=== PATIENT | female | born 1995 | race Caucasian/White ===

== ENCOUNTER 2018-09-25 13:13 | Observation (INO) | payer BC ==
--- NOTE | 2018-09-25 13:29 | EDM.PDOCBH ---
ED HPI GENERAL MEDICAL PROBLEM - General Chief Complaint: Behavioral/Psych Stated Complaint: ER VISIT Time Seen by Provider: 09/25/18 13:16 Source of Information: Reports: Patient, RN, RN Notes Reviewed History Limitations: Reports: No Limitations - History of Present Illness INITIAL COMMENTS - FREE TEXT/NARRATIVE: Patient presents to the ED at [facility] for evaluation after she took approximately 6 tablets of Acetaminophen. According to the patient, she was having a "bad day" and was sent home from work. Shortly after arriving home, the patient apparently took the Tylenol. She apparently called a fellow nurse at home who brought her here to the ER for evaluation. Patient states she was having a bad day, headaches, and just not feeling well. Patient states she took the Tylenol to make her symptoms better and not to harm herself. Patient offers no specific complains. Denies pain. No chest pain or SOB. Very mild ache in her stomach. No N/V/D. No urinary symptoms. In reviewing the [facility] record, it appears the patient has a long- standing history of anxiety and depression. The patient recently restarted on Prozac a couple of months ago at 20 mg daily. The patient did have a dose decreased to 40 mg the end of July. It appears that the patient has not been consistently keeping her appointments with her PCP. The patient has been seen at [facility] in the past for anxiety and depression. There was mention that the patient may have bipolar 1, however this is not mentioned in the [facility] records according to [place] review. During the last PCP visit, the patient had stated that she was doing much better on the current dose of Prozac. Onset: Today Onset Date: 09/25/18 Onset Time: 12:30 - Related Data Allergies Allergy/AdvReac Type Severity Reaction Status Date / Time bupropion HCl Allergy Hives Verified 09/25/18 13:27 [From Wellbutrin] Sulfa (Sulfonamide Allergy Hives Verified 09/25/18 13:27 Antibiotics) Home Meds: Home Meds FLUoxetine HCl [Fluoxetine HCl] 40 mg PO DAILY 09/25/18 [History] Past Medical History Other HEENT History: glasses Other Genitourinary History: kidney stone - Past Surgical History Other Female Surgeries/Procedures: natural delivery Social & Family History - Living Situation & Occupation Living situation: Reports: with Significant Other Occupation: Unemployed ED ROS GENERAL - Review of Systems Review Of Systems: See Below Constitutional: Denies: Fever, Chills Respiratory: Denies: Shortness of Breath, Cough Cardiovascular: Denies: Chest Pain, Palpitations GI/Abdominal: Reports: Abdominal Pain. Denies: Diarrhea, Nausea, Vomiting Skin: Reports: No Symptoms Neurological: Reports: No Symptoms ED EXAM, BEHAVIORAL HEALTH - Physical Exam Exam: See Below Exam Limited By: No Limitations General Appearance: Alert, No Apparent Distress Respiratory/Chest: No Respiratory Distress, Lungs Clear, Normal Breath Sounds Cardiovascular: Normal Peripheral Pulses, Regular Rate, Rhythm GI/Abdominal: Normal Bowel Sounds, Soft, Non-Tender Neurological: Alert, Normal Cognition, Oriented x 3 Psychiatric: Depressed Mood, Flat Affect, Poor Eye Contact, Withdrawn. No: Homicidal Thoughts, Suicidal Plan, Suicidal Thoughts, Threatening Behavior Skin Exam: Warm, Dry, Intact, Normal color COURSE, BEHAVIORAL HEALTH COMP - Course Vital Signs: Last Vital Signs Temp 37.0 C 09/25/18 13:16 Pulse 89 09/25/18 13:16 Resp 16 09/25/18 13:16 BP 143/84 H 09/25/18 13:16 Pulse Ox 100 09/25/18 13:16 Orders, Labs, Meds: Active Orders 24 hr Category Date Time Status SALICYLATE [REF] Stat Lab 09/25/18 13:30 Received Laboratory Tests 09/25/18 09/25/18 09/25/18 Range/Units 13:30 13:30 13:42 WBC 7.3 (4.0-10.0) x10^3/uL RBC 4.37 (4.00-5.50) x10^6/uL Hgb 12.4 (12.0-16.0) g/dL Hct 36.7 (33.0-47.0) % MCV 84.0 (78.0-93.0) fL MCH 28.4 (26.0-32.0) pg MCHC 33.8 (32.0-36.0) g/dL RDW Coeff of Mehran 12.4 (10.0-15.0) % Plt Count 354 (130-400) x10^3/uL Neut % (Auto) 73.0 (50.0-80.0) % Lymph % (Auto) 19.2 L (25.0-50.0) % [place] % (Auto) 7.3 (2.0-11.0) % Eos % (Auto) 0.4 (0.0-4.0) % Baso % (Auto) 0.1 L (0.2-1.2) % Sodium 137 (136-145) mmol/L Potassium 3.3 L (3.5-5.1) mmol/L Chloride 98 (98-107) mmol/L Carbon Dioxide 25 (21-32) mmol/L Anion Gap 17.3 (10-20) mmol/L BUN 12 (7-18) mg/dL Creatinine 0.7 (0.55-1.02) mg/dL Est Cr Clr Drug Dosing TNP Estimated GFR (MDRD) > 60 Glucose 109 H (74-106) mg/dL Calcium 9.9 (8.5-10.1) mg/dL Corrected Calcium 9.74 (8.5-10.1) mg/dL Total Bilirubin 0.4 (0.2-1.0) mg/dL AST 17 (15-37) U/L ALT 25 (14-59) U/L Alkaline Phosphatase 96 (46-116) U/L Total Protein 8.5 H (6.4-8.2) g/dL Albumin 4.2 (3.4-5.0) g/dL Globulin 4.3 Albumin/Globulin Ratio 0.98 Urine Color (YELLOW) Urine Appearance (CLEAR) Urine pH (5.0-8.0) Ur Specific [place] Urine Protein (NEGATIVE) mg/dL Urine Glucose (UA) (NEGATIVE) mg/dL Urine Ketones (NEGATIVE) mg/dL Urine Occult Blood (NEGATIVE) Urine Nitrite (NEGATIVE) Urine Bilirubin (NEGATIVE) Urine Urobilinogen (0.2) EU/dL Ur Leukocyte Esterase (NEGATIVE) Urine Opiates Screen Negative (NEGATIVE) Ur Buprenorphine Scrn Negative (NEGATIVE) Ur Oxycodone Screen Negative (NEGATIVE) Urine Methadone Screen Negative (NEGATIVE) Acetaminophen 42 H (10-30) ug/ml Ur Barbiturates Screen Negative (NEGATIVE) Ur Tricyclics Screen Negative (NEGATIVE) Ur Amphetamine Screen Negative (NEGATIVE) U Methamphetamines Scrn Negative (NEGATIVE) Urine MDMA Screen Negative (NEGATIVE) U Benzodiazepines Scrn Negative (NEGATIVE) U Cocaine Metab Screen Negative (NEGATIVE) U Marijuana (THC) Screen Negative (NEGATIVE) Ethyl Alcohol < 3 (0-3) mg/dL 09/25/18 Range/Units 13:42 WBC (4.0-10.0) x10^3/uL RBC (4.00-5.50) x10^6/uL Hgb (12.0-16.0) g/dL Hct (33.0-47.0) % MCV (78.0-93.0) fL MCH (26.0-32.0) pg MCHC (32.0-36.0) g/dL RDW Coeff of Mehran (10.0-15.0) % Plt Count (130-400) x10^3/uL Neut % (Auto) (50.0-80.0) % Lymph % (Auto) (25.0-50.0) % [place] % (Auto) (2.0-11.0) % Eos % (Auto) (0.0-4.0) % Baso % (Auto) (0.2-1.2) % Sodium (136-145) mmol/L Potassium (3.5-5.1) mmol/L Chloride (98-107) mmol/L Carbon Dioxide (21-32) mmol/L Anion Gap (10-20) mmol/L BUN (7-18) mg/dL Creatinine (0.55-1.02) mg/dL Est Cr Clr Drug Dosing Estimated GFR (MDRD) Glucose (74-106) mg/dL Calcium (8.5-10.1) mg/dL Corrected Calcium (8.5-10.1) mg/dL Total Bilirubin (0.2-1.0) mg/dL AST (15-37) U/L ALT (14-59) U/L Alkaline Phosphatase (46-116) U/L Total Protein (6.4-8.2) g/dL Albumin (3.4-5.0) g/dL Globulin Albumin/Globulin Ratio Urine Color Yellow (YELLOW) Urine Appearance Clear (CLEAR) Urine pH 5.5 (5.0-8.0) Ur Specific [place] 1.020 Urine Protein Negative (NEGATIVE) mg/dL Urine Glucose (UA) Negative (NEGATIVE) mg/dL Urine Ketones Negative (NEGATIVE) mg/dL Urine Occult Blood Negative (NEGATIVE) Urine Nitrite Negative (NEGATIVE) Urine Bilirubin Negative (NEGATIVE) Urine Urobilinogen 0.2 (0.2) EU/dL Ur Leukocyte Esterase Negative (NEGATIVE) Urine Opiates Screen (NEGATIVE) Ur Buprenorphine Scrn (NEGATIVE) Ur Oxycodone Screen (NEGATIVE) Urine Methadone Screen (NEGATIVE) Acetaminophen (10-30) ug/ml Ur Barbiturates Screen (NEGATIVE) Ur Tricyclics Screen (NEGATIVE) Ur Amphetamine Screen (NEGATIVE) U Methamphetamines Scrn (NEGATIVE) Urine MDMA Screen (NEGATIVE) U Benzodiazepines Scrn (NEGATIVE) U Cocaine Metab Screen (NEGATIVE) U Marijuana (THC) Screen (NEGATIVE) Ethyl Alcohol (0-3) mg/dL Departure - Departure Time of Disposition: 14:34 Disposition: Refer to Observation Condition: Good Clinical Impression: Acetaminophen overdose of undetermined intent Qualifiers: Encounter type: initial encounter Qualified Code(s): T39.1X4A - Poisoning by 4- Aminophenol derivatives, undetermined, initial encounter - Discharge Information *PRESCRIPTION DRUG MONITORING PROGRAM REVIEWED*: Not Applicable *COPY OF PRESCRIPTION DRUG MONITORING REPORT IN PATIENT AMANDA: Not Applicable ED Communication - ED Communication Date/Time Date: 09/25/18 Time Called: 14:22 - Discussed Case With (1) Discussed Case With (1): Other ([facility], [place]) - Problem List Review Problem List Initiated/Reviewed/Updated: Yes - My Orders Last 24 Hours: My Active Orders 09/25/18 13:30 SALICYLATE [REF] Stat - Assessment/Plan Admission H&P: Please use this note as an admission H&P Last 24 Hours: My Active Orders 09/25/18 13:30 SALICYLATE [REF] Stat Assessment:: Unintentional Tylenol OD Hypokalemia Plan: Case discussed with Poison Control Center. Lab would need to be drawn at 16:30 to get a true value of tylenol, so patient will be admitted observation for labs and IVF hydration. Patient may need Mucomyst, so will see what the level is. Patient agrees with the admission and wishes to proceed. Discussed the patient that if her next draw for acetaminophen is high she would need to be started on Mucomyst. If the labral is trending down she would be discharged once the Tylenol level is undetectable. We will replace the patient's potassium. I will put her on IV fluids for hydration and to help flush her system. We'll start the patient on a PPI IV for now prophylactically. I do anticipate a stay of less than 48 hours. The patient is a code level I.
[2018-09-25 13:58] LABS: ACETAMINOPHEN 42 ug/ml (10-30); CHLORIDE,CL 98 mmol/L (98-107); SODIUM,NA 137 mmol/L (136-145)
[2018-09-25 13:59] LABS: ANION GAP 17.3 mmol/L (10-20)
[2018-09-25] MEDS ORDERED: Ondansetron 4 MG Tab.DIS PO PRN (14:45)
[2018-09-25 15:00] VITALS: BP 126/70
[2018-09-25] MEDS ORDERED: Sodium Chloride 0.9% 1,000 ML IV ONE (15:01)
[2018-09-25] MEDS ORDERED: Sodium Chloride 0.9% 10 ML Syringe FLUSH PRN (15:02)
[2018-09-25] MEDS ORDERED: Potassium Chloride 20 MEQ Tab.ER PO ONE (15:02)
--- NOTE | 2018-09-25 17:24 | PCM.DCSUM1 ---
Discharge Summary - Hospital Course HPI Initial Comments: Patient presented to the emergency room earlier today after she had taken 6 tablets of Tylenol. The patient had stated in the emergency room that the ingestion was unintentional. The patient had stated she had a severe headache and was having a bad day at work and that's why she took the pills. The patient' s laboratory work in the emergency room was normal with the exception of acetaminophen which was elevated at 42. The Poison Control Center was contacted and the recommendation was made to observe the patient and draw an acetaminophen level IV hours after the time of ingestion. If the level was declining the patient would be able to be discharged. The patient does have a long-standing history of anxiety and depression. The patient was recently started on Prozac a couple of months ago by her PCP. According to old records, the Prozac seems to be working well for the patient per her own admission. The patient states today that she was not trying to intentionally overdose on the acetaminophen and that she was only having a bad day. Diagnosis: Stroke: No Modified Ascencion Scale: No Symptoms at All Modified [place] Scale Score: 0 - Discharge Data Discharge Date: 09/25/18 Discharge Disposition: Home, Self-Care 01 Condition: Good - Discharge Diagnosis/Problem(s) (1) Acetaminophen overdose of undetermined intent SNOMED Code(s): 201963859, [id number] ICD Code: T39.1X4A - POISONING BY 4-AMINOPHENOL DERIVATIVES, UNDETERMINED, INIT Status: Acute Current Visit: Yes Onset Date: ~09/25/18 Qualifiers: Encounter type: initial encounter Qualified Code(s): T39.1X4A - Poisoning by 4-Aminophenol derivatives, undetermined, initial encounter - Patient Summary/Data Operative Procedure(s) Performed: None Consults: Consultations 09/25/18 14:45 Consult to Case Management/Pulmonology Technician [CONS] Routine Labs Pending at D/C: None Recommended Follow-up Testing/Procedures: Keep followup appt with Dr. Hawkins on September 30, 2018. Planned Operative Procedure(s) after DC: None Hospital Course: Patient was admitted to our observation unit for IV fluid hydration and monitoring due to Tylenol ingestion. The patient's repeat Tylenol level was 10 which is in the normal range. The patient short stay in observation was uneventful. The patient remained hemodynamically stable. The patient did not have any pain at the time of discharge. No focal neurological deficits. The patient did not have any cardiac rhythm problems. The patient did not have any chest pain or shortness of breath. The patient did have some abdominal ache in the epigastrium but that had resolved at the time of discharge. - Patient Instructions Diet: Regular Diet as Tolerated Activity: Rest and Relax Today Driving: Do Not Drive (for today) Showering/Bathing: May Shower Notify Provider of: Fever, Increased Pain, Nausea and/or Vomiting - Discharge Plan *PRESCRIPTION DRUG MONITORING PROGRAM REVIEWED*: Not Applicable *COPY OF PRESCRIPTION DRUG MONITORING REPORT IN PATIENT AMANDA: Not Applicable Home Medications: Home Meds FLUoxetine HCl [Fluoxetine HCl] 40 mg PO DAILY 09/25/18 [History] Oxygen Therapy Mode: Room Air Referrals: Lorena Hawkins MD [Primary Care Provider] - 09/30/18 (FOLLOW UP WITH DR. HAWKINS ON SEPTEMBER 30, 2018 ) - Discharge Summary/Plan Comment DC Time >30 min.: No Discharge Summary/Plan Comment: Patient will be discharge to home into the responsibility of her . Recommend patient states very well hydrated. Avoid Tylenol products. Follow up with Dr. Hawkins on Sunday, September 30, 2018. This appt is already scheduled. - General Info Date of Service: 09/25/18 Admission Dx/Problem (Free Text: Unintentional Acetaminophen overdose Depression Anxiety Subjective Update: Patient offers no specific complaints. Patient states she did not take the Tylenol intentionally to harm herself. No issues with BM's or urination. Ambulating normal. No focal neurological complaints. Functional Status: Reports: Pain Controlled, Tolerating Diet, Ambulating, Urinating. Denies: New Symptoms Numeric/FACES Score: 0 - Review of Systems General: Denies: Fever, Weakness Pulmonary: Denies: Shortness of Breath, Cough Cardiovascular: Denies: Chest Pain, Palpitations Gastrointestinal: Denies: Abdominal Pain, Nausea, Vomiting Skin: Reports: No Symptoms Neurological: Reports: No Symptoms - Patient Data Vitals - Most Recent: Last Vital Signs Temp 37.1 C 09/25/18 14:45 Pulse 85 09/25/18 14:45 Resp 20 09/25/18 14:45 BP 126/70 09/25/18 14:45 Pulse Ox 100 09/25/18 14:45 Weight - Most Recent: 86.908 kg I&O - Last 24 hours: Intake & Output 09/25/18 09/25/18 09/25/18 06:59 14:59 22:59 Intake Total 250 Output Total 550 Balance -300 Lab Results - Last 24 hrs: Laboratory Results - last 24 hr 09/25/18 09/25/18 09/25/18 Range/Units 13:30 13:30 13:42 WBC 7.3 (4.0-10.0) x10^3/uL RBC 4.37 (4.00-5.50) x10^6/uL Hgb 12.4 (12.0-16.0) g/dL Hct 36.7 (33.0-47.0) % MCV 84.0 (78.0-93.0) fL MCH 28.4 (26.0-32.0) pg MCHC 33.8 (32.0-36.0) g/dL RDW Coeff of Mehran 12.4 (10.0-15.0) % Plt Count 354 (130-400) x10^3/uL Neut % (Auto) 73.0 (50.0-80.0) % Lymph % (Auto) 19.2 L (25.0-50.0) % [place] % (Auto) 7.3 (2.0-11.0) % Eos % (Auto) 0.4 (0.0-4.0) % Baso % (Auto) 0.1 L (0.2-1.2) % Sodium 137 (136-145) mmol/L Potassium 3.3 L (3.5-5.1) mmol/L Chloride 98 (98-107) mmol/L Carbon Dioxide 25 (21-32) mmol/L Anion Gap 17.3 (10-20) mmol/L BUN 12 (7-18) mg/dL Creatinine 0.7 (0.55-1.02) mg/dL Est Cr Clr Drug Dosing TNP Estimated GFR (MDRD) > 60 Glucose 109 H (74-106) mg/dL Calcium 9.9 (8.5-10.1) mg/dL Corrected Calcium 9.74 (8.5-10.1) mg/dL Total Bilirubin 0.4 (0.2-1.0) mg/dL AST 17 (15-37) U/L ALT 25 (14-59) U/L Alkaline Phosphatase 96 (46-116) U/L Total Protein 8.5 H (6.4-8.2) g/dL Albumin 4.2 (3.4-5.0) g/dL Globulin 4.3 Albumin/Globulin Ratio 0.98 Urine Color (YELLOW) Urine Appearance (CLEAR) Urine pH (5.0-8.0) Ur Specific [place] Urine Protein (NEGATIVE) mg/dL Urine Glucose (UA) (NEGATIVE) mg/dL Urine Ketones (NEGATIVE) mg/dL Urine Occult Blood (NEGATIVE) Urine Nitrite (NEGATIVE) Urine Bilirubin (NEGATIVE) Urine Urobilinogen (0.2) EU/dL Ur Leukocyte Esterase (NEGATIVE) Urine Opiates Screen Negative (NEGATIVE) Ur Buprenorphine Scrn Negative (NEGATIVE) Ur Oxycodone Screen Negative (NEGATIVE) Urine Methadone Screen Negative (NEGATIVE) Acetaminophen 42 H (10-30) ug/ml Ur Barbiturates Screen Negative (NEGATIVE) Ur Tricyclics Screen Negative (NEGATIVE) Ur Amphetamine Screen Negative (NEGATIVE) U Methamphetamines Scrn Negative (NEGATIVE) Urine MDMA Screen Negative (NEGATIVE) U Benzodiazepines Scrn Negative (NEGATIVE) U Cocaine Metab Screen Negative (NEGATIVE) U Marijuana (THC) Screen Negative (NEGATIVE) Ethyl Alcohol < 3 (0-3) mg/dL 09/25/18 09/25/18 Range/Units 13:42 16:30 WBC (4.0-10.0) x10^3/uL RBC (4.00-5.50) x10^6/uL Hgb (12.0-16.0) g/dL Hct (33.0-47.0) % MCV (78.0-93.0) fL MCH (26.0-32.0) pg MCHC (32.0-36.0) g/dL RDW Coeff of Mehran (10.0-15.0) % Plt Count (130-400) x10^3/uL Neut % (Auto) (50.0-80.0) % Lymph % (Auto) (25.0-50.0) % [place] % (Auto) (2.0-11.0) % Eos % (Auto) (0.0-4.0) % Baso % (Auto) (0.2-1.2) % Sodium (136-145) mmol/L Potassium (3.5-5.1) mmol/L Chloride (98-107) mmol/L Carbon Dioxide (21-32) mmol/L Anion Gap (10-20) mmol/L BUN (7-18) mg/dL Creatinine (0.55-1.02) mg/dL Est Cr Clr Drug Dosing Estimated GFR (MDRD) Glucose (74-106) mg/dL Calcium (8.5-10.1) mg/dL Corrected Calcium (8.5-10.1) mg/dL Total Bilirubin (0.2-1.0) mg/dL AST (15-37) U/L ALT (14-59) U/L Alkaline Phosphatase (46-116) U/L Total Protein (6.4-8.2) g/dL Albumin (3.4-5.0) g/dL Globulin Albumin/Globulin Ratio Urine Color Yellow (YELLOW) Urine Appearance Clear (CLEAR) Urine pH 5.5 (5.0-8.0) Ur Specific [place] 1.020 Urine Protein Negative (NEGATIVE) mg/dL Urine Glucose (UA) Negative (NEGATIVE) mg/dL Urine Ketones Negative (NEGATIVE) mg/dL Urine Occult Blood Negative (NEGATIVE) Urine Nitrite Negative (NEGATIVE) Urine Bilirubin Negative (NEGATIVE) Urine Urobilinogen 0.2 (0.2) EU/dL Ur Leukocyte Esterase Negative (NEGATIVE) Urine Opiates Screen (NEGATIVE) Ur Buprenorphine Scrn (NEGATIVE) Ur Oxycodone Screen (NEGATIVE) Urine Methadone Screen (NEGATIVE) Acetaminophen 10 (10-30) ug/ml Ur Barbiturates Screen (NEGATIVE) Ur Tricyclics Screen (NEGATIVE) Ur Amphetamine Screen (NEGATIVE) U Methamphetamines Scrn (NEGATIVE) Urine MDMA Screen (NEGATIVE) U Benzodiazepines Scrn (NEGATIVE) U Cocaine Metab Screen (NEGATIVE) U Marijuana (THC) Screen (NEGATIVE) Ethyl Alcohol (0-3) mg/dL Med Orders - Current: Current Medications Fluoxetine HCl (Prozac) 40 mg PO DAILY YULY Ondansetron HCl (Zofran Odt) 4 mg PO Q6H PRN PRN Reason: nausea, able to take PO Sodium Chloride (Saline Flush) 10 ml FLUSH ASDIRECTED PRN PRN Reason: Keep Vein Open Discontinued Medications Sodium Chloride (Normal Saline) 1,000 mls @ 999 mls/hr IV ONETIME ONE Stop: 09/25/18 16:01 Last Admin: 09/25/18 15:20 Dose: 999 mls/hr Potassium Chloride (Klor-Con M20) 40 meq PO ONETIME ONE Stop: 09/25/18 15:03 Last Admin: 09/25/18 15:28 Dose: 40 meq - Exam Quality Assessment: Denies: DVT Prophylaxis, Skin Breakdown General: Reports: Alert, Oriented, Cooperative, No Acute Distress Lungs: Reports: Clear to Auscultation, Normal Respiratory Effort Cardiovascular: Reports: Regular Rate, Regular Rhythm GI/Abdominal Exam: Normal Bowel Sounds, Soft, Non-Tender Skin: Reports: Warm, Dry, Intact Neurological: Reports: No New Focal Deficit
[2018-09-26] MEDS ORDERED: FLUoxetine 20 MG Cap PO SCH (08:00)
== END 2018-09-25 17:50 | disposition home or self-care (01) ==
LOC: VM.ED 13:13 → VM.MS 14:32
PROVIDERS: ADMIT Nurse Practitioner Family; ATTEND Nurse Practitioner Family
DX: T39.1X4A Poisoning by 4-Aminophenol derivatives, undetermined, initial encounter (principal); E87.6 Hypokalemia; F41.9 Anxiety disorder, unspecified; F32.9 Major depressive disorder, single episode, unspecified
CPT/HCPCS: 36415; 80053; 80305-QW; 81003; 85025; 99284; A9270-GY; G0480; J7030

== ENCOUNTER 2023-11-12 | Emergency (ER) | payer OTHER ==
[2023-11-12 00:19] VITALS: BP 132/66; PULSE 66
[2023-11-12 00:39] LABS: APPEARANCE,URINE CLEAR (CLEAR); BILIRUBIN,URINE NEGATIVE (NEGATIVE); COLOR,URINE DARK YELLOW (YELLOW); GLUCOSE,URINE NEGATIVE (NEGATIVE); KETONES,URINE TRACE mg/dL (NEGATIVE); LEUKOCYTE ESTERASE,URINE NEGATIVE (NEGATIVE); NITRITE,URINE NEGATIVE (NEGATIVE); OCCULT BLOOD,URINE NEGATIVE (NEGATIVE); PH,URINE 5.5 (5.0-8.0); PROTEIN,URINE TRACE mg/dL (NEGATIVE); UROBILINOGEN,URINE 0.2 EU/dL (0.2)
[2023-11-12 00:44] LABS: BASOPHILS PERCENT AUTO 0.1 % (0.2-1.2); EOSINOPHILS ABSOLUTE AUTO 0.1 x10^3/uL (0.0-0.5); EOSINOPHILS PERCENT AUTO 0.7 % (0.0-4.0); HEMATOCRIT 36.7 % (33.0-47.0); HEMOGLOBIN 12.6 g/dL (12.0-16.0); IMMATURE GRAN ABSOLUTE AUTO 0.02 x10^3/uL (0.00-0.07); LYMPHOCYTES ABSOLUTE AUTO 1.9 x10^3/uL (1.0-4.8); LYMPHOCYTES PERCENT AUTO 14.9 % (25.0-50.0); MEAN CORPUSCULAR HEMOGLOBIN 30.4 pg (26.0-32.0); MEAN CORPUSCULAR HGB CONC 34.3 g/dL (32.0-36.0); MEAN CORPUSCULAR VOLUME 88.4 fL (78.0-93.0); MONOCYTES ABSOLUTE AUTO 0.7 x10^3/uL (0.0-0.8); MONOCYTES PERCENT AUTO 5.6 % (2.0-11.0); NEUTROPHILS ABSOLUTE AUTO 10.2 x10^3/uL (1.8-7.7); NEUTROPHILS PERCENT AUTO 78.5 % (50.0-80.0); PLATELET COUNT,PLT 291 x10^3/uL (130-400); RED BLOOD CELL COUNT 4.15 x10^6/uL (4.00-5.50)
[2023-11-12 00:44] LABS: BACTERIA,URINE OCCASIONAL /HPF (NOT SEEN); MUCUS,URINE OCCASIONAL /LPF (NOT SEEN); RBC,URINE 0-5 /HPF (NOT SEEN); SQUAMOUS EPITHELIAL CELLS,UR OCCASIONAL /HPF (NOT SEEN); WBC,URINE 0-5 /HPF (NOT SEEN)
[2023-11-12 00:51] LABS: A/G RATIO 0.95; ALANINE AMINOTRANSFERASE,ALT 18 U/L (14-59); ALBUMIN 3.9 g/dL (3.4-5.0); ALKALINE PHOSPHATASE 59 U/L (46-116); ANION GAP 14.8 mmol/L (5-15); ASPARTATE AMNIOTRANSFERASE,AST 14 U/L (15-37); BILIRUBIN TOTAL 0.3 mg/dL (0.2-1.0); BLOOD UREA NITROGEN,BUN 17 mg/dL (7-18); CALCIUM 9.3 mg/dL (8.5-10.1); CARBON DIOXIDE,CO2 28 mmol/L (21-32); CHLORIDE,CL 101 mmol/L (98-107); CREATININE 0.8 mg/dL (0.55-1.02); ESTIMATED GFR 102 mL/min (>=60); ETHANOL BLOOD MEDICAL < 3 mg/dL (0-3); GLUCOSE RANDOM 102 mg/dL (70-99); POTASSIUM,K 3.8 mmol/L (3.5-5.1); SODIUM,NA 140 mmol/L (136-145)
[2023-11-12 01:01] LABS: CORONAVIRUS COVID-19 NAA NEGATIVE (NEGATIVE); INFLUENZA A NAA NEGATIVE (NEGATIVE); INFLUENZA B NAA NEGATIVE (NEGATIVE); RESPIRATORY SYNCYTIAL VIR NAA NEGATIVE (NEGATIVE)
[2023-11-12 01:07] LABS: AMPHETAMINES SCREEN, URINE POSITIVE (NEGATIVE); BARBITURATE SCREEN,URINE NEGATIVE (NEGATIVE); BENZODIAZEPINES SCREEN,URINE NEGATIVE (NEGATIVE); BUPRENORPHINE SCREEN,URINE NEGATIVE (NEGATIVE); COCAINE METABOLITES,URINE NEGATIVE (NEGATIVE); METHADONE SCREEN, URINE NEGATIVE (NEGATIVE); METHAMPHETAMINE SCREEN, URINE NEGATIVE (NEGATIVE); OXYCODONE SCREEN,URINE NEGATIVE (NEGATIVE); PCP SCREEN,URINE NEGATIVE (NEGATIVE); THC SCREEN,URINE 50 NG/ML NEGATIVE (NEGATIVE)
== END 2023-11-12 05:10 ==
LOC: VM.ED
DX: R45.851 Suicidal ideations (principal); F90.9 Attention-deficit hyperactivity disorder, unspecified type; Z88.8 Allergy status to other drugs, medicaments and biological substances; Z88.2 Allergy status to sulfonamides; Z79.899 Other long term (current) drug therapy; Z86.19 Personal history of other infectious and parasitic diseases
CPT/HCPCS: 0241U; 36415; 80053; 80305-QW; 80307; 81001; 81025; 85025; 99283; 99285

== ENCOUNTER 2024-01-23 19:10 | Emergency (ER) | payer OTHER ==
[2024-01-23 20:27] VITALS: BP 132/83; PULSE 71
== END 2024-01-23 20:05 | disposition home or self-care (01) ==
LOC: VM.ED 19:10
DX: S62.306A Unspecified fracture of fifth metacarpal bone, right hand, initial encounter for closed fracture (principal); Z79.899 Other long term (current) drug therapy; Z88.2 Allergy status to sulfonamides; Z88.8 Allergy status to other drugs, medicaments and biological substances; X58.XXXA Exposure to other specified factors, initial encounter
CPT/HCPCS: 29125; 73130-RT; 99283; 99283-25